=== PATIENT | female | born 1950 | race Caucasian/White ===

== ENCOUNTER 2020-04-01 10:30 | Day surgery (SDC) | payer OTHER ==
[2020-03-27 11:15] VITALS: BMI 30.2
[2020-04-01 10:51] VITALS: TEMP 98.1
[2020-04-01 12:54] VITALS: BP 112/66; PULSE 60
== END 2020-04-01 12:50 | disposition home or self-care (01) ==
LOC: FASU-ENDO 10:30
PROVIDERS: ATTEND Internal Medicine Gastroenterology
PROC: 0DBN8ZX Excision of Sigmoid Colon, Via Natural or Artificial Opening Endoscopic, Diagnostic (ICD-10-PCS; principal; 2020-04-01 11:49)
DX: Z12.11 Encounter for screening for malignant neoplasm of colon (principal); D12.5 Benign neoplasm of sigmoid colon; K57.30 Diverticulosis of large intestine without perforation or abscess without bleeding; K64.8 Other hemorrhoids
CPT/HCPCS: 88305-TC

== ENCOUNTER 2024-09-11 15:15 | Observation (INO) | payer OTHER ==
[2024-09-11 15:28] VITALS: BMI 27.4
[2024-09-11] MEDS: ALBUTEROL SO4 2.5/IPRATROPIUM 0.5 INH SOL 3 ML VIAL.NEB. NEB ONE (16:11)
[2024-09-11] MEDS ORDERED: ALBUTEROL SO4 2.5/IPRATROPIUM 0.5 INH SOL 3 ML VIAL.NEB. NEB ONE (16:12)
[2024-09-11 16:34] LABS: EOS % 7.6 % (0-4.5); HEMATOCRIT 32.7 % (32.4-45.2); HEMOGLOBIN 10.2 GM/dL (10.7-15.3); LYMPH % 20.7 % (8-40); MCHC 31.4 g/dl (32.0-36.0); MEAN CELL VOLUME 79.8 fl (80-96); MEAN PLT VOLUME 7.4 fl (7.5-11.1); MONO % 10.5 % (3.8-10.2); NEUT % 59.2 % (42.8-82.8); PLATELET COUNT 482 10^3/uL (134-434); RDW 16.4 % (11.6-15.6)
[2024-09-11 17:12] LABS: POTASSIUM 3.3 mmol/L (3.5-5.1)
[2024-09-11 17:14] LABS: BLOOD UREA NITROGEN 16.5 mg/dL (7-18); CALCIUM 9.8 mg/dL (8.5-10.1); MAGNESIUM 1.9 mg/dL (1.8-2.4)
[2024-09-11 17:18] LABS: CREATININE 0.9 mg/dL (0.55-1.3)
[2024-09-11 17:19] LABS: BILIRUBIN,TOTAL 0.6 mg/dL (0.2-1); TOT PROT 7.3 g/dl (6.4-8.2)
[2024-09-12 01:42] VITALS: RESP 16
[2024-09-12] MEDS ORDERED: POTASSIUM CHLORIDE ORAL LIQUID 20 MEQ/15 ML PO ONE (02:10)
[2024-09-12] MEDS ORDERED: traZODone HCL 50 MG TABLET (FP) PO PRN (03:11)
[2024-09-12] MEDS ORDERED: LEVALBUTEROL HCL 0.63 MG/3 ML VIAL.NEB. IH PRN (03:14)
[2024-09-12] MEDS: KCL 10 MEQ IVPB 10 MEQ/100 ML INFUS.BAG IVPB SCH (04:30)
[2024-09-12] MEDS ORDERED: levoFLOXacin 750 MG TABLET PO SCH (06:00)
[2024-09-12] MEDS: LEVOTHYROXINE NA 100 MCG TABLET (FP) PO SCH (06:48)
[2024-09-12 07:59] LABS: BASO % 1.8 % (0-2.0); HEMATOCRIT 30.4 % (32.4-45.2); HEMOGLOBIN 9.7 GM/dL (10.7-15.3); LYMPH % 22.1 % (8-40); MCH 25.9 pg (25.7-33.7); MCHC 31.8 g/dl (32.0-36.0); MEAN CELL VOLUME 81.4 fl (80-96); MONO % 11.4 % (3.8-10.2); NEUT % 55.7 % (42.8-82.8); PLATELET COUNT 433 10^3/uL (134-434); RBC 3.73 M/mm3 (3.60-5.2); RDW 16.3 % (11.6-15.6); WHITE BLOOD COUNT 5.4 K/mm3 (4.0-10.0)
[2024-09-12 08:55] LABS: POTASSIUM 3.6 mmol/L (3.5-5.1)
[2024-09-12 09:02] LABS: ALBUMIN 3.5 g/dl (3.4-5.0); BLOOD UREA NITROGEN 13.7 mg/dL (7-18); PHOSPHOROUS 3.1 mg/dL (2.5-4.9)
[2024-09-12 09:04] LABS: BILIRUBIN,TOTAL 0.7 mg/dL (0.2-1); TOT PROT 6.6 g/dl (6.4-8.2)
[2024-09-12 09:05] LABS: CALCIUM 9.4 mg/dL (8.5-10.1); CREATININE 0.7 mg/dL (0.55-1.3); MAGNESIUM 2.1 mg/dL (1.8-2.4)
[2024-09-12] MEDS ORDERED: IBUPROFEN 600 MG TABLET (FP) PO PRN (09:06)
[2024-09-12] MEDS ORDERED: IBUPROFEN 400 MG TABLET (FP) PO PRN (09:08)
[2024-09-12] MEDS ORDERED: ACETAMINOPHEN 325 MG TABLET (FP) PO PRN (09:09)
[2024-09-12] MEDS: FAMOTIDINE 20 MG TABLET PO SCH (09:17)
[2024-09-12] MEDS: ENOXAPARIN NA (PORCINE) 40 MG/0.4 ML DISP.SYRIN SQ SCH (09:17)
[2024-09-12] MEDS: TRIAMTERENE AND HCTZ - 37.5 MG/25 MG CAPSULE PO SCH (09:52)
[2024-09-12] MEDS ORDERED: methylPREDNISolone NA SUCC 40 MG/1 ML VIAL IVPUSH SCH (10:00)
[2024-09-12] MEDS: predniSONE 20 MG TABLET (UD) PO ONE (10:47)
[2024-09-12] MEDS ORDERED: ALBUTEROL SO4 2.5/IPRATROPIUM 0.5 INH SOL 3 ML VIAL.NEB. NEB SCH (12:00)
[2024-09-12 15:54] VITALS: BP 132/83; PULSE 70; TEMP 98.4
[2024-09-12] MEDS ORDERED: LIDOCAINE 5% TOPICAL PATCH TP ONE (20:00)
[2024-09-12] MEDS ORDERED: MONTELUKAST NA 10 MG TABLET PO SCH (22:00)
[2024-09-12] MEDS ORDERED: ROSUVASTATIN CA 10 MG TABLET PO SCH (22:00)
[2024-09-13] MEDS ORDERED: LIDOCAINE PATCH REMOVAL MC ONE (08:00)
== END 2024-09-12 15:12 | disposition home or self-care (01) ==
LOC: JER 15:15 → JERBED 22:20 → J4S 09-12 01:05
PROVIDERS: ADMIT Internal Medicine; ATTEND Internal Medicine
PROC: 3E0F7GC Introduction of Other Therapeutic Substance into Respiratory Tract, Via Natural or Artificial Opening (ICD-10-PCS; principal; 2024-09-11)
PROC: 3E023GC Introduction of Other Therapeutic Substance into Muscle, Percutaneous Approach (ICD-10-PCS; 2024-09-11)
DX: S22.31XA Fracture of one rib, right side, initial encounter for closed fracture (principal); X58.XXXA Exposure to other specified factors, initial encounter; J45.909 Unspecified asthma, uncomplicated; E87.6 Hypokalemia; M87.88 Other osteonecrosis, other site; E78.5 Hyperlipidemia, unspecified; I10 Essential (primary) hypertension; E03.9 Hypothyroidism, unspecified; M81.0 Age-related osteoporosis without current pathological fracture; J18.9 Pneumonia, unspecified organism; R07.1 Chest pain on breathing
CPT/HCPCS: 0241U-QW; 36415; 71046-TC-FY; 71250-TC; 80053; 83735; 84100; 84443; 84484; 85025; 87899; 93005; 93010; 93306-TC; 94640; 96365; 96372; 99285-25; G0378

== ENCOUNTER 2025-05-29 06:20 | Day surgery (SDC) | payer OTHER ==
[2025-05-27 17:10] VITALS: BMI 26.6
[2025-05-29] MEDS ORDERED: ACETAMINOPHEN 500 MG TABLET (FP) PO PRN (09:10)
[2025-05-29 11:28] VITALS: RESP 20
[2025-05-29] MEDS: LIDOCAINE HCL 1% PRESERVATIVE FREE - 30ML VIAL IJ ONE (13:20)
[2025-05-29] MEDS: IOHEXOL 180 MG/1 ML ML IJ ONE (13:21)
[2025-05-29] MEDS: DEXAMETHASONE SOD PHOSPHATE 10 MG/1 ML VIAL IM ONE (13:27)
[2025-05-29 16:47] VITALS: BP 128/80; PULSE 58; TEMP 98
== END 2025-05-29 14:30 | disposition home or self-care (01) ==
LOC: JASU-SURG 06:20
PROVIDERS: ATTEND Pain Medicine Pain Medicine
PROC: 3E0R3BZ Introduction of Anesthetic Agent into Spinal Canal, Percutaneous Approach (ICD-10-PCS; 2025-05-29)
PROC: 3E0R33Z Introduction of Anti-inflammatory into Spinal Canal, Percutaneous Approach (ICD-10-PCS; principal; 2025-05-29 12:30)
DX: M54.16 Radiculopathy, lumbar region (principal)
CPT/HCPCS: 76000-TC-FY; J1100

== ENCOUNTER 2025-07-07 15:59 | Inpatient (IN) | payer OTHER ==
[2025-07-07 16:10] VITALS: BMI 27.4
[2025-07-07] MEDS ORDERED: ACETAMINOPHEN INJECTION 100 ML ONE (17:07)
[2025-07-07] MEDS: ACETAMINOPHEN 1000 MG/100 ML BAG IVPB ONE (17:30)
[2025-07-07] MEDS: SODIUM CHLORIDE 0.9% 500 ML INFUS.BAG IV ONE (17:31)
[2025-07-07 17:43] LABS: ABSOLUTE IMMATURE GRANULOCYTES 0.03 x10^3/uL (0.0-0.031); BASOPHILS # 0.08 x10^3/uL (0.01-0.08); EOSINOPHIL % 4.4 % (0.7-5.8); EOSINOPHILS # 0.27 x10^3/uL (0.04-0.36); MCHC 32.1 g/dl (32.2-35.5); MEAN CELL VOLUME 99.5 fl (79.4-94.8); MEAN PLT VOLUME 10.1 fl (9.4-12.3); MONOCYTE # 0.72 x10^3/uL (0.24-0.86); MONOCYTE % 11.7 % (4.7-12.5); RDW 14.0 % (12.4-16.6)
[2025-07-07 18:00] LABS: GLUCOSE,RANDOM 94.0 mg/dL (74-106)
[2025-07-07 18:01] LABS: CO2 28.0 mmol/L (21-32); TOT PROT 6.8 g/dl (6.4-8.2)
[2025-07-07 18:03] LABS: ALK PHOS 84.0 U/L (40-150)
[2025-07-07 18:06] LABS: CREATININE 0.79 mg/dL (0.55-1.3); SGOT/AST 27.0 U/L (5-34); SGPT/ALT 17.0 U/L (0-55)
[2025-07-07 18:26] LABS: HCV DIAGNOSTIC IN-HOUSE W/RFLX NON-REACTIVE (NONREACTIVE)
[2025-07-07 18:27] LABS: HIV INTERPRETATION NEGATIVE (NEGATIVE)
[2025-07-07] MEDS ORDERED: KETOROLAC TROMETHAMINE 15 MG/ML VIAL ONE (19:15)
[2025-07-07] MEDS: KETOROLAC TROMETHAMINE 15 MG/ML VIAL IVPUSH ONE (19:33)
[2025-07-08] MEDS ORDERED: ACETAMINOPHEN 325 MG TABLET (FP) ONE (02:08)
[2025-07-08] MEDS ORDERED: GABAPENTIN 300 MG CAPSULE ONE (02:08)
[2025-07-08] MEDS: GABAPENTIN 300 MG CAPSULE PO ONE (02:55)
[2025-07-08] MEDS: ACETAMINOPHEN 325 MG TABLET (FP) PO ONE (02:55)
[2025-07-08] MEDS ORDERED: KETOROLAC TROMETHAMINE 15 MG/ML VIAL ONE (05:58)
[2025-07-08] MEDS: KETOROLAC TROMETHAMINE 15 MG/ML VIAL IVPUSH ONE (06:34)
[2025-07-08] MEDS ORDERED: ALBUTEROL SO4 HFA INHALER IH PRN (06:48)
[2025-07-08] MEDS ORDERED: LEVOTHYROXINE NA 100 MCG TABLET (FP) ONE (07:03)
[2025-07-08] MEDS: LEVOTHYROXINE NA 100 MCG TABLET (FP) PO SCH (07:12)
[2025-07-08] MEDS: GABAPENTIN 300 MG CAPSULE PO SCH (10:42)
[2025-07-08] MEDS: ROSUVASTATIN CA 10 MG TABLET PO SCH (10:42)
[2025-07-08] MEDS: CALCIUM 500MG/VIT-D 200 UNITS COMBO TABLET (FP) PO SCH (10:42)
[2025-07-08] MEDS: BUDESONIDE/FORMETEROL FUMARATE 80/4.5 mcg INHALER IH SCH ×2 (10:42→21:54)
[2025-07-08] MEDS: FAMOTIDINE 20 MG TABLET PO SCH (10:42)
[2025-07-08 10:53] LABS: ABSOLUTE IMMATURE GRANULOCYTES 0.02 x10^3/uL (0.0-0.031); BASOPHILS # 0.06 x10^3/uL (0.01-0.08); EOSINOPHIL % 5.1 % (0.7-5.8); EOSINOPHILS # 0.24 x10^3/uL (0.04-0.36); MCHC 31.2 g/dl (32.2-35.5); MEAN CELL VOLUME 100.6 fl (79.4-94.8); MEAN PLT VOLUME 10.1 fl (9.4-12.3); MONOCYTE # 0.50 x10^3/uL (0.24-0.86); MONOCYTE % 10.7 % (4.7-12.5); RDW 14.1 % (12.4-16.6)
[2025-07-08 11:19] LABS: GLUCOSE,RANDOM 105.0 mg/dL (74-106)
[2025-07-08 11:20] LABS: TOT PROT 6.0 g/dl (6.4-8.2)
[2025-07-08 11:21] LABS: CO2 28.0 mmol/L (21-32)
[2025-07-08 11:22] LABS: ALK PHOS 81.0 U/L (40-150)
[2025-07-08 11:25] LABS: CREATININE 0.81 mg/dL (0.55-1.3); SGOT/AST 25.0 U/L (5-34); SGPT/ALT 12.0 U/L (0-55)
[2025-07-08 11:36] LABS: ERYTHROCYTE SEDIMENTATION RATE 14 mm/hr (0-30)
[2025-07-08] MEDS ORDERED: FLU VACC TS2025-26(6MOS UP)/PF 45 MCG/0.5 ML SYRINGE IM ONE ×2 (12:15→14:15)
[2025-07-08] MEDS: TRIAMTERENE AND HCTZ - 37.5 MG/25 MG CAPSULE PO SCH (12:39)
[2025-07-08 19:22] LABS: INR 1.05 (0.83-1.09); PROTHROMBIN TIME (PATIENT) 11.5 SEC (9.7-13.0)
[2025-07-08 19:25] LABS: ACTIVATED PTT 30.4 SECONDS (25.2-36.5)
[2025-07-08] MEDS ORDERED: morphine CARPU-JECT 2 MG/1 ML DISP.SYRIN IVPUSH PRN (19:45)
[2025-07-08] MEDS: MONTELUKAST NA 10 MG TABLET PO SCH (21:54)
[2025-07-08] MEDS: FERROUS SO4 325 MG TABLET (FP) PO SCH (21:54)
[2025-07-08] MEDS: ACETAMINOPHEN 325 MG TABLET (FP) PO PRN (21:54)
[2025-07-09] MEDS: traZODone HCL 50 MG TABLET (FP) PO PRN (00:51)
[2025-07-09] MEDS: MELATONIN 5 MG TABLETS PO ONE (02:31)
[2025-07-09] MEDS: POTASSIUM CHLORIDE ORAL LIQUID 20 MEQ/15 ML PO ONE (07:00)
[2025-07-09 08:08] LABS: MCHC 31.3 g/dl (32.2-35.5); MEAN CELL VOLUME 100.5 fl (79.4-94.8); MEAN PLT VOLUME 10.0 fl (9.4-12.3); RDW 14.2 % (12.4-16.6)
[2025-07-09 08:39] LABS: GLUCOSE,RANDOM 88.0 mg/dL (74-106); TOT PROT 6.1 g/dl (6.4-8.2)
[2025-07-09 08:40] LABS: CO2 27.0 mmol/L (21-32)
[2025-07-09 08:42] LABS: ALK PHOS 78.0 U/L (40-150)
[2025-07-09 08:44] LABS: SGOT/AST 24.0 U/L (5-34); SGPT/ALT 13.0 U/L (0-55)
[2025-07-09 08:45] LABS: CREATININE 0.93 mg/dL (0.55-1.3)
[2025-07-09] MEDS: KCL 10 MEQ IVPB 10 MEQ/100 ML INFUS.BAG IVPB SCH (09:05)
[2025-07-09] MEDS ORDERED: ACETAMINOPHEN INJECTION 100 ML ONE (12:56)
[2025-07-09] MEDS ORDERED: ROCURONIUM BROMIDE 50 MG/5 ML SYRINGE ONE (12:57)
[2025-07-09] MEDS ORDERED: SUCCINYLCHOLINE CHLORIDE 200 MG/10 ML SYRINGE ONE (12:57)
[2025-07-09] MEDS ORDERED: PROPOFOL 60 ML ONE (15:31)
[2025-07-09] MEDS ORDERED: PROPOFOL 20 ML ONE (15:34)
[2025-07-09] MEDS ORDERED: SODIUM CHLORIDE 0.9% P/F 10 ML VIAL IJ ONE (15:36)
[2025-07-09] MEDS ORDERED: LIDOCAINE HCL/PF 2% SDV 5ML VIAL ONE (15:36)
[2025-07-09] MEDS ORDERED: DEXAMETHASONE SOD PHOSPHATE 4 MG/1 ML VIAL ONE (15:37)
[2025-07-09] MEDS ORDERED: ONDANSETRON 4 MG/2 ML VIAL ONE (15:37)
[2025-07-09] MEDS ORDERED: GLYCOPYRROLATE 0.2 MG/1 ML VIAL ONE (15:37)
[2025-07-09] MEDS ORDERED: MIDAZOLAM HCL 2 MG/2 ML SINGLE DOSE VIAL ONE (15:38)
[2025-07-09] MEDS ORDERED: LIDOCAINE 1%/EPI 1:100000 (20 ML MULTI DOSE VIAL) ONE (15:40)
[2025-07-09] MEDS ORDERED: MAGNESIUM SULF 50% (8.12 MEQ/2 ML-1 GM VIAL) ONE (15:40)
[2025-07-09] MEDS ORDERED: GENTAMICIN SO4 80 MG/2 ML VIAL ONE (15:41)
[2025-07-09] MEDS ORDERED: methylPREDNISolone ACET (DEPO) 80 MG/1 ML VIAL ONE (15:42)
[2025-07-09 15:47] LABS: GLUCOSE,RANDOM 85.0 mg/dL (74-106)
[2025-07-09 15:49] LABS: CO2 25.0 mmol/L (21-32)
[2025-07-09 15:53] LABS: CREATININE 0.81 mg/dL (0.55-1.3)
[2025-07-09] MEDS ORDERED: THROMBIN (BOVINE) 20,000 UNIT VIAL TP ONE (16:09)
[2025-07-09] MEDS ORDERED: ALBUTEROL SO4 HFA INHALER IH ONE (17:55)
[2025-07-09] MEDS ORDERED: FAMOTIDINE 20 MG/50 ML IVPB 20 MG/50 ML MG IVPB ONE (17:56)
[2025-07-09] MEDS ORDERED: TRANEXAMIC ACID 1000 MG/10 ML VIAL ONE (19:57)
[2025-07-09] MEDS: HYDROGEN PEROXIDE 473 ML PO ONE (20:28)
[2025-07-09] MEDS: GENTAMICIN SO4 80 MG/2 ML VIAL IVPB ONE (20:28)
[2025-07-09] MEDS ORDERED: PROPOFOL 100 ML ONE (20:43)
[2025-07-09] MEDS: THROMBIN (BOVINE) 20,000 UNIT VIAL TP ONE (20:46)
[2025-07-09] MEDS ORDERED: SUGAMMADEX SODIUM 200 MG/2 ML VIAL ONE (20:56)
[2025-07-09] MEDS ORDERED: VANCOMYCIN 1,000 MG VIAL (RESTRICTED TO ID ONLY) ONE (21:16)
[2025-07-09] MEDS: VANCOMYCIN 1,000 MG VIAL (RESTRICTED TO ID ONLY) IVPB ONE (21:18)
[2025-07-09] MEDS: LACTATED RINGERS SOLUTION 1,000 ML IV SCH ×2 (22:06→23:50)
[2025-07-09] MEDS ORDERED: morphine CARPU-JECT 2 MG/1 ML DISP.SYRIN IVPUSH PRN (22:55)
[2025-07-09] MEDS ORDERED: traZODone HCL 50 MG TABLET (FP) PO PRN (22:55)
[2025-07-10] MEDS: GABAPENTIN 300 MG CAPSULE PO SCH (06:24)
[2025-07-10] MEDS: LEVOTHYROXINE NA 100 MCG TABLET (FP) PO SCH (06:24)
[2025-07-10 09:01] LABS: MCHC 32.3 g/dl (32.2-35.5); MEAN CELL VOLUME 100.0 fl (79.4-94.8); MEAN PLT VOLUME 10.3 fl (9.4-12.3); RDW 13.8 % (12.4-16.6)
[2025-07-10 10:00] LABS: GLUCOSE,RANDOM 158.0 mg/dL (74-106); TOT PROT 6.0 g/dl (6.4-8.2)
[2025-07-10 10:01] LABS: CO2 26.0 mmol/L (21-32)
[2025-07-10] MEDS: ROSUVASTATIN CA 10 MG TABLET PO SCH (10:02)
[2025-07-10 10:03] LABS: ALK PHOS 73.0 U/L (40-150)
[2025-07-10] MEDS: DOCUSATE SODIUM 100 MG CAPSULE (FP) PO SCH (10:03)
[2025-07-10] MEDS: FAMOTIDINE 20 MG TABLET PO SCH (10:03)
[2025-07-10] MEDS: CALCIUM 500MG/VIT-D 200 UNITS COMBO TABLET (FP) PO SCH (10:03)
[2025-07-10] MEDS: BUDESONIDE/FORMETEROL FUMARATE 80/4.5 mcg INHALER IH SCH (10:04)
[2025-07-10 10:06] LABS: CREATININE 0.87 mg/dL (0.55-1.3); SGOT/AST 25.0 U/L (5-34); SGPT/ALT 11.0 U/L (0-55)
[2025-07-10] MEDS: ACETAMINOPHEN 325 MG TABLET (FP) PO PRN (19:02)
[2025-07-10] MEDS: FERROUS SO4 325 MG TABLET (FP) PO SCH (21:19)
[2025-07-10] MEDS: MONTELUKAST NA 10 MG TABLET PO SCH (21:19)
[2025-07-11 07:57] LABS: ABSOLUTE IMMATURE GRANULOCYTES 0.04 x10^3/uL (0.0-0.031); BASOPHILS # 0.04 x10^3/uL (0.01-0.08); EOSINOPHIL % 0.8 % (0.7-5.8); EOSINOPHILS # 0.07 x10^3/uL (0.04-0.36); MCHC 31.4 g/dl (32.2-35.5); MEAN CELL VOLUME 102.2 fl (79.4-94.8); MEAN PLT VOLUME 10.3 fl (9.4-12.3); MONOCYTE # 1.08 x10^3/uL (0.24-0.86); MONOCYTE % 12.6 % (4.7-12.5); RDW 14.3 % (12.4-16.6)
[2025-07-11 08:12] LABS: GLUCOSE,RANDOM 94.0 mg/dL (74-106)
[2025-07-11 08:13] LABS: CO2 29.0 mmol/L (21-32)
[2025-07-11 08:18] LABS: CREATININE 0.84 mg/dL (0.55-1.3)
[2025-07-11] MEDS: ENOXAPARIN NA (PORCINE) 40 MG/0.4 ML DISP.SYRIN SQ SCH (09:47)
[2025-07-11] MEDS: ACETAMINOPHEN WITH CODEINE 300MG/30MG TABLET PO ONE (10:38)
[2025-07-11] MEDS: ALBUTEROL SO4 HFA INHALER IH PRN (10:45)
[2025-07-11] MEDS: LIDOCAINE 4% PATCH TP SCH (13:24)
[2025-07-11] MEDS: LIDOCAINE PATCH REMOVAL MC SCH (21:41)
[2025-07-11] MEDS: guaiFENesin 600 MG TABLET.ER (FP) PO SCH (21:41)
[2025-07-11] MEDS: ACETAMINOPHEN WITH CODEINE 300MG/30MG TABLET PO PRN (21:44)
[2025-07-12 07:52] LABS: ABSOLUTE IMMATURE GRANULOCYTES 0.03 x10^3/uL (0.0-0.031); BASOPHILS # 0.06 x10^3/uL (0.01-0.08); EOSINOPHIL % 1.2 % (0.7-5.8); EOSINOPHILS # 0.10 x10^3/uL (0.04-0.36); MCHC 31.6 g/dl (32.2-35.5); MEAN CELL VOLUME 100.9 fl (79.4-94.8); MEAN PLT VOLUME 10.3 fl (9.4-12.3); MONOCYTE # 1.19 x10^3/uL (0.24-0.86); MONOCYTE % 14.6 % (4.7-12.5); RDW 14.3 % (12.4-16.6)
[2025-07-12 08:31] LABS: GLUCOSE,RANDOM 102.0 mg/dL (74-106)
[2025-07-12 08:33] LABS: CO2 27.0 mmol/L (21-32)
[2025-07-12 08:37] LABS: CREATININE 0.75 mg/dL (0.55-1.3)
[2025-07-12] MEDS: MAGNESIUM OXIDE 400 MG TABLET (FP) PO ONE (17:24)
[2025-07-13 08:54] LABS: MCHC 32.0 g/dl (32.2-35.5); MEAN CELL VOLUME 99.4 fl (79.4-94.8); MEAN PLT VOLUME 10.4 fl (9.4-12.3); RDW 14.2 % (12.4-16.6)
[2025-07-13 09:19] LABS: GLUCOSE,RANDOM 100.0 mg/dL (74-106)
[2025-07-13 09:20] LABS: TOT PROT 5.5 g/dl (6.4-8.2)
[2025-07-13 09:21] LABS: CO2 25.0 mmol/L (21-32)
[2025-07-13 09:22] LABS: ALK PHOS 76.0 U/L (40-150)
[2025-07-13 09:25] LABS: CREATININE 0.7 mg/dL (0.55-1.3); SGOT/AST 18.0 U/L (5-34); SGPT/ALT 6.0 U/L (0-55)
[2025-07-13] MEDS: KETOROLAC TROMETHAMINE 15 MG/ML VIAL IVPUSH ONE (16:10)
[2025-07-13] MEDS: CELECOXIB 200 MG CAPSULE PO SCH (21:13)
[2025-07-14 08:55] LABS: ABSOLUTE IMMATURE GRANULOCYTES 0.06 x10^3/uL (0.0-0.031); BASOPHILS # 0.07 x10^3/uL (0.01-0.08); EOSINOPHIL % 5.0 % (0.7-5.8); EOSINOPHILS # 0.39 x10^3/uL (0.04-0.36); MCHC 31.9 g/dl (32.2-35.5); MEAN CELL VOLUME 100.3 fl (79.4-94.8); MEAN PLT VOLUME 10.4 fl (9.4-12.3); MONOCYTE # 0.76 x10^3/uL (0.24-0.86); MONOCYTE % 9.8 % (4.7-12.5); RDW 14.3 % (12.4-16.6)
[2025-07-14] MEDS: ALBUTEROL SO4 0.083% IH SOL 2.5 MG/3 ML VIAL.NEB. NEB ONE (09:01)
[2025-07-14 09:40] LABS: GLUCOSE,RANDOM 156.0 mg/dL (74-106); TOT PROT 5.5 g/dl (6.4-8.2)
[2025-07-14 09:41] LABS: CO2 29.0 mmol/L (21-32)
[2025-07-14 09:43] LABS: ALK PHOS 138.0 U/L (40-150)
[2025-07-14 09:46] LABS: CREATININE 0.77 mg/dL (0.55-1.3); SGOT/AST 24.0 U/L (5-34); SGPT/ALT 13.0 U/L (0-55)
[2025-07-14] MEDS: POLYETHYLENE GLYCOL (HEALTHYLAX) 3350 17 GM PACKET PO SCH (10:05)
[2025-07-14] MEDS: POTASSIUM CHLORIDE ORAL LIQUID 20 MEQ/15 ML PO ONE (16:31)
[2025-07-14] MEDS: SENNOSIDES 8.6MG TABLET (FP) PO SCH (21:34)
[2025-07-15 09:26] LABS: GLUCOSE,RANDOM 90.0 mg/dL (74-106)
[2025-07-15 09:27] LABS: CO2 28.0 mmol/L (21-32)
[2025-07-15 09:32] LABS: CREATININE 0.77 mg/dL (0.55-1.3)
[2025-07-15] MEDS: CELECOXIB 200 MG CAPSULE PO SCH (09:49)
[2025-07-15] MEDS: POTASSIUM CHLORIDE TABS 20 MEQ TABLET.ER (FP) PO SCH (09:50)
[2025-07-15] MEDS: FLUTICASONE PROP 0.05% 16 GM NASAL SPRAY NS SCH (09:59)
[2025-07-17] MEDS: LISINOPRIL 20 MG TABLET PO SCH (12:20)
[2025-07-18 12:07] VITALS: BP 112/68; PULSE 70; TEMP 97.9
[2025-07-18 12:10] VITALS: RESP 16
[2025-07-18] MEDS: ACETAMINOPHEN 325 MG TABLET (FP) PO PRN (12:28)
== END 2025-07-18 13:28 | DRG 519 ==
LOC: JERFT 15:59 → JERBED 07-08 05:33 → J6S 07-08 08:36 → OBSVTOIN 07-09 10:20
PROVIDERS: ADMIT Internal Medicine; ATTEND Internal Medicine
PROC: 01NB0ZZ Release Lumbar Nerve, Open Approach (ICD-10-PCS; 2025-07-09)
PROC: 00QT0ZZ Repair Spinal Meninges, Open Approach (ICD-10-PCS; 2025-07-09)
PROC: 0ST20ZZ Resection of Lumbar Vertebral Disc, Open Approach (ICD-10-PCS; principal; 2025-07-09 16:00)
DX: M51.16 Intervertebral disc disorders with radiculopathy, lumbar region (principal); G97.41 Accidental puncture or laceration of dura during a procedure; S22.000A Wedge compression fracture of unspecified thoracic vertebra, initial encounter for closed fracture; M41.9 Scoliosis, unspecified; M48.061 Spinal stenosis, lumbar region without neurogenic claudication; I10 Essential (primary) hypertension; E78.5 Hyperlipidemia, unspecified; E03.9 Hypothyroidism, unspecified; M81.0 Age-related osteoporosis without current pathological fracture; M17.12 Unilateral primary osteoarthritis, left knee; M25.462 Effusion, left knee; W19.XXXA Unspecified fall, initial encounter; Y93.9 Activity, unspecified; Y92.89 Other specified places as the place of occurrence of the external cause; Y99.9 Unspecified external cause status; Y83.9 Surgical procedure, unspecified as the cause of abnormal reaction of the patient, or of later complication, without mention of misadventure at the time of the procedure; E87.6 Hypokalemia
CPT/HCPCS: 36415; 71045-TC-FY; 72157-TC; 72158-TC; 73560-TC-LT-FY; 76000-TC-FY; 80048; 80053; 82962; 83735; 84100; 85025; 85027; 85610; 85651; 85730; 86140; 86803; 86850; 86900; 86901; 87389; 87637-QW; 88304-TC; 94010; 94640; 94760; 97116-GP; 97162-GP; 99285-25; G0378